=== PATIENT | female | born 1985 | race Hispanic/Latino ===

== ENCOUNTER 2016-12-26 08:43 | Emergency (ER) | payer SELFPAY ==
[~2016-12-26] VITALS: Ht 165.1 cm; Wt 61.0 kg
[~2016-12-26 08:43] MED LIST: ASC500 PO; CALC-881 PO; CYCL10TA9 PO; FERR250C3 PO; OMEGA-3 EC SOF1 EACH PO; PREN1TAB47 PO
[2016-12-26 08:49] VITALS: BP 115/71; PULSE 69; RESP 16; O2SAT 99
--- NOTE | 2016-12-26 09:15 | ED.REPORT ---
HPI-Abd Pain F Under 40 Date of Service Dec 26, 2016 ED Provider: Carson Nathan MD Patient is a 31 year old female who presents to the ED complaining of lower abdominal pain onset suddenly one hour prior to arrival. Patient has also been experiencing dental pain recently and has been taking a lot of Ibuprofen. She denies nausea, vomiting, diarrhea, constipation, fever, dysuria, back pain, or any other symptoms. She had a UTI 6 weeks ago that was treated with abx. She has been on her period for the past 4 days. Nursing Notes Stated Complaint: ABD PAIN,NEAR SYNCOPE,HYPERVENTILATING Chief Complaint: Female Abdominal Pain Nursing Notes Reviewed: Yes Allergies: Coded Allergies: Penicillins (Verified Allergy, Unknown, 01/02/16) Scheduled Ascorbic Acid-Expunged Drug, Do Not Renew! (Vitamin C-Expunged Drug, Do Not Renew!) 500 Mg Tablet 500 MG PO DAILY Salvatore Carb/Vitamin D3-Expunged, Do Not Renew! (Salvatore Carb/Vitamin D3-Expunged, Do Not Renew!) 1 Each Tablet.er 1 EACH PO DAILY Ferrous Sulfate-Expunged Drug, Do Not Renew! (Ferrous Sulfate-Expunged Drug, Do Not Renew!) 250 Mg Capsule.sa 250 MG PO DAILY OMEGA-3/DHA/EPA/FISH OIL-Expunged, Do Not Panchito (OMEGA-3 EC-Expunged, Do Not Renew !) 1 Each Capsule.dr 1 EACH PO DAILY Vit/Fe Fumarate/Fa-Expunged Drug, Do (-Expunged Drug, Do Not Renew!) 1 Tab Tablet 1 TAB PO DAILY Scheduled PRN Cyclobenzaprine (Cyclobenzaprine) 10 Mg Tablet 10 MG PO TID PRN PRN Spasm Ibuprofen (Ibuprofen) 800 Mg Tablet 800 MG PO TID PRN PRN For Pain General Time Seen by MD: 09:10 Chief Complaint Abdominal pain Hx Obtained From: Patient Arrived By: Walk-in Sudden in Onset?: Yes Onset Occurred: 1 - 4 hours ago Symptom Duration: Since onset Past Medical History Past Medical History Notes: Past Medical History None Past Surgical History Reports: Smoking History Unknown if Ever Smoker Social History Other Social History: Good social support Ambulatory Status Independent Review of Systems Constitutional: Denies: Fever GI: Reports: Abdominal pain, Denies: Constipation, Diarrhea, Nausea, Vomiting Female: Denies: Dysuria Musculoskeletal: Denies: Back pain Complete sys rev & neg: except as marked. Physical Exam Initial Vital Signs Vital Signs (First) Date Time Temp Pulse Resp B/P Pulse Ox O2 Delivery O2 Flow Rate FiO2 12/26/16 08:49 36.4 69 16 115/71 99 Room Air Initial VS: Reviewed Head / Eyes: Atraumatic, Normocephalic Neck: Full range of motion Extremities: No swelling, No tenderness Skin: Warm, Dry Neurologic: Alert, Oriented, Nonfocal Psychiatric: Mood/affect normal, Behavior normal, Normal thought content General/Constitutional: Awake, Alert, Well developed Respiratory / Chest: Atraumatic, Breath sounds NL, Breath sounds = bilat, No respiratory distress Cardiovascular: Heart rate NL, Regular rhythm, Heart sounds NL, No murmurs Abdomen: Atraumatic, Soft Tenderness/Guarding/Rebound: Positive: Tender LLQ... (Moderate) Back: No CVA tenderness Female Genitourinary: Business Support Administrator present, Os closed Pelvic Exam: Positive: Adnexal tenderness L (Mild ) Mild superpubic tenderness Small amount of white discharge. Interpretation & Diagnostics Lab Results Interpretation Result Diagram: 12/26/16 0955 12/26/16 0955 Test 12/26/16 09:31 12/26/16 09:55 12/26/16 10:23 Urine Color Straw (YELLOW) Urine Appearance Clear (CLEAR,HAZY) Urine pH 8.5 (5.0-8.0) Urine Specific [place] 1.015 (1.003-1.035) Urine Protein Negativemg/dL (NEG,TRACE) Urine Glucose (UA) Negativemg/dL (NEGATIVE) Urine Ketones Negativemg/dL (NEGATIVE) Urine Occult Blood Negative (NEGATIVE) Urine Nitrite Negative (NEGATIVE) Urine Bilirubin Negative (NEGATIVE) Urine Urobilinogen Normalmg/dL (NORMAL) Urine Leukocyte Esterase Negative (NEGATIVE) Urine RBC 0-2/hpf (0-2) Urine WBC 0-5/hpf (0-5) Urine Epithelial Cells Occasional/hpf (NONE-MOD) Urine Crystals None seen (NONE SEEN) Urine Bacteria None/hpf (NONE-FEW) Urine Hyaline Casts None/lpf (NONE) Urine Granular Casts None seen (NONE SEEN) Urine Waxy Casts None seen (NONE SEEN) Urine Red Blood Cell Casts None seen (NONE SEEN) Urine White Blood Cell Casts None seen (NONE SEEN) Urine Mucus None seen (None Seen) Urine Trichomonas None seen (NONE SEEN) Urine Yeast None (NONE SEEN) Urinalysis Comment None Urine Culture Reflexed Not indicated White Blood Count 6.6th/mm3 (3.8-10.1) Red Blood Count 4.24mil/mm3 (3.90-5.20) Hemoglobin 12.8g/dL (12.0-15.6) Hematocrit 40.0% (35.0-46.0) Mean Corpuscular Volume 94.3fL (81-100) Mean Corpuscular Hemoglobin 30.2pg (27.0-35.0) Mean Corpuscular Hemoglobin Concent 32.0% (32.0-37.0) Red Cell Distribution Width 11.8% (12.3-15.4) Platelet Count 289bil/L (150-400) Neutrophils (%) (Auto) 76.8% (40-74) Lymphocytes (%) (Auto) 15.5% (14-46) Monocytes (%) (Auto) 6.5% (4-12) Eosinophils (%) (Auto) 0.5% (0-5) Basophils (%) (Auto) 0.5% (0-3) Sodium Level 138mEq/L (134-144) Potassium Level 3.7mEq/L (3.5-5.2) Chloride Level 102mEq/L (97-108) Carbon Dioxide Level 23mmol/L (18-29) Blood Urea Nitrogen 14mg/dL (6-20) Creatinine 0.58mg/dL (0.57-1.00) Estimat Glomerular Filtration Rate 173mL/min (>59) Glucose Level 99mg/dL (60-99) Calcium Level 9.4mg/dL (8.5-10.1) Magnesium Level 1.9mg/dL (1.6-2.6) Total Bilirubin 0.8mg/dL (0.0-1.2) Aspartate Amino Transf (AST/SGOT) 15U/L (0-50) Alanine Aminotransferase (ALT/SGPT) 12U/L (0-32) Alkaline Phosphatase 82U/L (25-150) Total Protein 7.3g/dL (6.4-8.4) Albumin 4.6g/dL (3.4-5.0) Lipase 19U/L (13-60) US Focused non-OB Pelvis Complex L ovarian cyst less than 2 cm in all dimensions with good flow. Exam Performed by: [facility] pract Exam Type: Diagnostic Exam Interpreted by: [facility] pract Interpretation: Ovarian cyst complex Re-Eval/Medical Decision Med Decision/Clinical Course Med Decision/Clinical Course: 31-year-old female with left lower quadrant pain since 8:00 this morning. Denies vaginal bleeding, discharge, , nausea vomiting, fevers. She does report when the pain started she felt like she was going to pass out and turned pale. This resolved quickly. She had mild left adnexal tenderness. Ultrasound shows complex left ovarian cyst with no evidence of ovarian torsion. Her abdominal pain resolved with morphine. Labs are stable. She did have a scant amount of white discharge and I did send this for gonorrhea Chlamydia. Her urine is negative. Pain likely due to left ovarian cyst. Her near-syncopal event likely vasovagal. We will discharge home with return precautions. Recommended follow-up with primary doctor tomorrow for repeat evaluation possible referral to [facility]Y SCIENTIST. Return precautions regarding neuro worsening abdominal pain, nausea vomiting, fevers chills, any other new or worsening symptoms. Re-Evaluation/Progress #1: Time of Eval: 10:15 )( Re-Eval Abdomen: Soft Re-Evaluation/Progress Note: Performed pelvic exam on pt with client onboarding analyst present. Re-Evaluation/Progress #2: Time of Eval: 11:08 )( Re-Eval Abdomen: Soft Re-Evaluation/Progress Note: Discussed US and lab results with patient. Discussed plan for discharge. Patient understands and agrees with plan. All questions addressed at this time. Counseled Regarding: Diagnosis, Lab results, Need for follow-up, When/why to return to ED Discharge & Departure Primary Impression: Ovarian cyst Laterality: left Qualified Code: N83.202 - Unspecified ovarian cyst, left side Additional Impressions: Abdominal pain Abdominal location: generalized Qualified Code: R10.84 - Generalized abdominal pain Near syncope Disposition: Home Discharge Condition All VS Reviewed: Yes Condition: Stable Patient Instructions: Ovarian Cyst (ED) Additional Instructions: Thank you for entrusting us with your care today. Follow up with your primary care physician this week and schedule an appointment with an LPC. You may take up to 800mg of Ibuprofen 3x a day to manage your pain. Return to the emergency department if you experience any new or worsening symptoms. Aurelia por confiarnos haji cuidado hoy. Seguimiento con haji mdico de cabecera esta semana y la christa con un obstetra/ gineclogo. Puede pool hasta 800mg de ibuprofeno 3 x al da para controlar haji dolor. Volver al servicio de urgencias si tiene cualquier sntoma nuevo o que empeora. Referrals: Hillary Sandoval MD (PCP) Scribe Attestation Portions of this note were transcribed by Tray Padgett. I, Dr. Nathan personally performed the history, physical exam and medical decision-making; I reviewed and confirmed the accuracy of the information in the transcribed note. Signed by: Tray Padgett 12/26/16, 1116 copies to: Hillary Sandoval MD, Ben M MD Dec 26, 2016 09:15 TRAY PADGETT Dec 26, 2016 09:20
[2016-12-26] MEDS ORDERED: 0.9% Sodium Chloride 1,000 ML IV ONE (09:21)
[2016-12-26] MEDS ORDERED: Ondansetron 2 mg/mL 2 mL Inj IVPUSH PRN (09:25)
[2016-12-26 10:06] LABS: BASOPHILS % (AUTO) 0.5 % (0-3); EOSINOPHILS % (AUTO) 0.5 % (0-5); MONOCYTES % (AUTO) 6.5 % (4-12); Mean Corpuscular Hemoglobin 30.2 pg (27.0-35.0); Mean Corpuscular Volume 94.3 fL (81-100); NEUTROPHILS % (AUTO) 76.8 % (40-74); Platelet Count 289 bil/L (150-400)
[2016-12-26 10:12] LABS: APPEARANCE,URINE CLEAR (CLEAR,HAZY); COLOR,URINE STRAW (YELLOW); OCCULT BLOOD,URINE NEGATIVE (NEGATIVE); PH,URINE 8.5 (5.0-8.0); UROBILINOGEN,URINE NORMAL (NORMAL)
[2016-12-26 10:27] LABS: Magnesium 1.9 mg/dL (1.6-2.6)
[2016-12-26] MEDS ORDERED: IBUP800T28 PO (11:24)
[2016-12-26 11:38] VITALS: BP 107/55; PULSE 60; RESP 14; O2SAT 100
--- NOTE | 2016-12-26 11:58 | DRSVH ---
PROCEDURE: US PELVIC SONOGRAM + TRANSVAGINAL SONOGRAM INDICATIONS: r/o ectopic LLQ pain TECHNIQUE: Real-time scanning was performed of the pelvic organs, with image documentation. Additional endovagi nal scanning was necessary due to incomplete visualization of the adnexal and endometrial structures by transabdominal scanning. COMPARISON: None. FINDINGS: Transabdominal scanning: Limited scanning through the kidneys shows no hydronephrosis. No pathologi c free abdominal or pelvic fluid. Endovaginal scanning: Uterus: Uterus is normal in size at 9.9 x 5.2 x 3.2 cm. The endometrium measures 13.3 mm in combine d thickness. Ovaries: Right adnexa measures 2.6 x 1.8 x 1.4 cm right adnexa sonographically normal. Left adnexa measures 2.3 x 3.0 x 2.5 cm. There is a complex cyst/mass in the left adnexa that measures 1.5 x 1.7 x 1.2 cm. Peripheral vascularity is associated with the complex left adnexal cyst/mass. IMPRESSION: No definite intrauterine identified with complex left adnexal cyst/mass. Diff erential diagnosis includes early with left corpus luteal cyst versus ectopic . R ecommend correlation with serial beta HCGs, follow up ultrasound and close clinical observation. Dictated by: Teresita Villareal MD, PhD on 12/26/2016 at 11:52 Approved by: Teresita Villareal MD, PhD on 12/26/2016 at 11:57
== END 2016-12-26 11:24 | disposition home or self-care (01) ==
LOC: SED 08:43
DX: N83.202 Unspecified ovarian cyst, left side (principal); R55 Syncope and collapse; Z88.0 Allergy status to penicillin
CPT/HCPCS: 36415; 76830; 76856; 80053; 81000; 81025; 83690; 83735; 85025; 87491; 87591; 96361; 96374; 96375; 99285; J2270; J2405; J7030